=== PATIENT | male | born 2000 | race Hispanic/Latino ===

== ENCOUNTER 2023-01-30 07:30 | Emergency (ER) | payer MEDICAID, SELFPAY ==
[2023-01-30] MEDS ORDERED: Boostrix 0.5 ML (Tdap) VIAL (>/=7 yrs of age) ONE (08:37)
[2023-01-30] MEDS ORDERED: Clindamycin/D5W 900 mg/50 ml Premix Bag ONE (08:37)
== END 2023-01-30 09:52 | disposition home or self-care (01) ==
LOC: MADERS 07:30
DX: L03.115 Cellulitis of right lower limb (principal); W57.XXXA Bitten or stung by nonvenomous insect and other nonvenomous arthropods, initial encounter; Y92.59 Other trade areas as the place of occurrence of the external cause; Z23 Encounter for immunization
CPT/HCPCS: 90471; 90715; 96365; J3490